=== PATIENT | female | born 1965 | race Caucasian/White ===

== ENCOUNTER → 2017-03-03 | Outpatient (REF) | payer BC ==
[~2017-03-03] MED LIST: FLON1SPR; OMEP40CA2 PO; PREM0.45 PO; TOPI50TA9 PO; VALT1TAB PO
== END ==
LOC: M LAB REF 13:10
PROVIDERS: ATTEND Physician Assistant
DX: J02.9 Acute pharyngitis, unspecified (principal)

== ENCOUNTER 2018-06-22 09:35 | Day surgery (SDC) | payer BC ==
[2018-06-22] MEDS: NS 1,000 ML IV (06:00)
[~2018-06-22 09:35] MED LIST changes: -FLON1SPR; +LIDOCAINE 2% INJ 100 MG/5 ML SDV (FOR ANES.) As Ordered; -OMEP40CA2 PO; -PREM0.45 PO; +PROPOFOL 200 MG/20 ML VIAL As Ordered; -TOPI50TA9 PO; -VALT1TAB PO
[2018-06-22] MEDS ORDERED: PROPOFOL 200 MG/20 ML VIAL As Ordered (11:43)
== END 2018-06-22 11:23 | disposition home or self-care (01) ==
LOC: M OPP 09:35
DX: Z12.11 Encounter for screening for malignant neoplasm of colon (principal); R19.4 Change in bowel habit; K64.8 Other hemorrhoids; K62.5 Hemorrhage of anus and rectum; Z87.19 Personal history of other diseases of the digestive system; K21.9 Gastro-esophageal reflux disease without esophagitis; R12 Heartburn; M54.89 Other dorsalgia; R51 Headache; R06.83 Snoring; Z87.442 Personal history of urinary calculi; Z85.43 Personal history of malignant neoplasm of ovary; Z85.41 Personal history of malignant neoplasm of cervix uteri; Z87.891 Personal history of nicotine dependence; Z79.899 Other long term (current) drug therapy
CPT/HCPCS: G0121

== ENCOUNTER → 2019-05-30 | Outpatient (CLI) | payer BC ==
[~2019-05-30] MED LIST changes: +FLON1SPR; -LIDOCAINE 2% INJ 100 MG/5 ML SDV (FOR ANES.) As Ordered; +OMEP40CA2 PO; +PREM0.45 PO; -PROPOFOL 200 MG/20 ML VIAL As Ordered; +TOPI50TA9 PO; +VALT1TAB PO
--- NOTE | 2019-05-30 14:36 | REP ---
Left foot: Four views. History: Left foot pain after fall. Findings: A toe ring is seen overlying the second PIP joint. There is mild plantar and Achilles calcaneal spurring. Overall mineralization pattern is normal. There are small os naviculare ossicles visible. No fracture is seen. Impression: No fracture noted. Electronically Signed by John Balbuena MD 05/30/2019 02:28 P
== END ==
LOC: M LRY 13:57
PROVIDERS: ATTEND Physician Assistant
DX: S99.922A Unspecified injury of left foot, initial encounter (principal); W19.XXXA Unspecified fall, initial encounter; Y92.89 Other specified places as the place of occurrence of the external cause

== ENCOUNTER → 2021-04-28 | Outpatient (CLI) | payer BC ==
[~2021-04-28] MED LIST changes: -OMEP40CA2 PO; +OMEP40CA4 PO
--- NOTE | 2021-04-28 11:17 | REP ---
INDICATION: LUNG SCREENING. COMPARISON: None. TECHNIQUE: Axial noncontrast images from the thoracic inlet to the upper abdomen using low-dose lung screening technique (LDCT). As per the protocol only lung window images were sent to the read station for interpretation. FINDINGS: There is biapical pleuroparenchymal scarring. No abnormal nodules, masses, or opacities are present. There is no pleural effusion. There is no gross pericardial effusion. Grossly, the mediastinum and pulmonary duncan are within normal limits. Grossly, the imaged upper abdomen and imaged osseous structures are within normal limits. IMPRESSION: Although there are no prior CT examinations of the chest for comparison the degree of biapical pleuroparenchymal scarring seen on today's examination was evident on lung window imaging performed on prior neck CT of 10/01/2015. Overall, lung rads category 1 no abnormal nodule. Follow-up as per the revised Fleischner society criteria. <Electronically signed by Kristopher Aburto > 04/28/21 [id number]
== END ==
LOC: M RAD 09:37
PROVIDERS: ATTEND Family Medicine
DX: Z87.891 Personal history of nicotine dependence (principal)

== ENCOUNTER → 2021-07-06 | Outpatient (CLI) | payer BC ==
--- NOTE | 2021-07-08 19:14 | SLEEPHOME ---
DATE: 07/06/2021 ORDERED BY: Elaine Mcclure Diagnostic home sleep testing was performed due to concern for the obstructive sleep apnea syndrome in this patient with a history of excessive somnolence, nonrestorative sleep, and morning headaches. For testing, a NOX T3 respiratory monitoring device was used. Continuous record was made of pulse, oxygen saturation, chest and abdominal strain, and body position. There was 9 hours and 42 minutes of data reviewed, and during this interval there were 247 respiratory events identified of 10 seconds in duration or greater. The events were primarily obstructive. Some mixed and central apneas were also seen. The patient's baseline pulse rate was 76. Pulse rate ranged between 60-113. Baseline saturation was 93%. Saturations fell to 82%, and testing was performed in both the supine and nonsupine positions. IMPRESSION: Abnormal home sleep testing with repetitive respiratory events and oxygen desaturations to 82% with a respiratory event index of 25.5 is consistent with the obstructive sleep apnea syndrome. RECOMMENDATION: The patient should be encouraged to undergo formal sleep evaluation.
== END ==
LOC: M SLEEP 11:06
PROVIDERS: ATTEND Nurse Practitioner Adult Health
DX: G47.30 Sleep apnea, unspecified (principal)

== ENCOUNTER → 2021-08-20 | Outpatient (CLI) | payer BC | LOC: M SLEEP 20:00 | PROVIDERS: ATTEND Nurse Practitioner Adult Health | DX: G47.33 Obstructive sleep apnea (adult) (pediatric) (principal) ==

== ENCOUNTER → 2022-09-14 | Outpatient (CLI) | payer BC | LOC: M LABSMTC 10:09 | PROVIDERS: ATTEND Anesthesiology | DX: Z01.812 Encounter for preprocedural laboratory examination (principal); Z20.822 Contact with and (suspected) exposure to COVID-19 ==

== ENCOUNTER 2022-09-16 11:15 | Day surgery (SDC) | payer BC ==
[~2022-09-16] VITALS: Ht 160 cm; Wt 85.6 kg
[~2022-09-16 11:15] MED LIST changes: +NS 1,000 ML IV ONE
[2022-09-16] MEDS ORDERED: LIDOCAINE 2% 100MG/5ML SDV (FOR ANES.) As Ordered ONE (12:11)
[2022-09-16] MEDS ORDERED: propofoL 200 MG/20 ML VIAL As Ordered ONE (12:11)
[2022-09-16 13:55] VITALS: BP 164/98
== END 2022-09-16 14:03 | disposition home or self-care (01) ==
LOC: M OPP 11:15
PROVIDERS: ATTEND Internal Medicine Gastroenterology
DX: D12.2 Benign neoplasm of ascending colon (principal); K57.30 Diverticulosis of large intestine without perforation or abscess without bleeding; K64.8 Other hemorrhoids; K44.9 Diaphragmatic hernia without obstruction or gangrene; K21.9 Gastro-esophageal reflux disease without esophagitis; G47.30 Sleep apnea, unspecified; Z85.43 Personal history of malignant neoplasm of ovary; Z85.44 Personal history of malignant neoplasm of other female genital organs; Z79.899 Other long term (current) drug therapy

== ENCOUNTER → 2023-02-28 | Outpatient (CLI) | payer BC ==
[~2023-02-28] MED LIST changes: -NS 1,000 ML IV ONE; +TOPI-254 PO; -TOPI50TA9 PO
== END ==
LOC: M RAD 14:24
PROVIDERS: ATTEND Family Medicine
DX: F17.211 Nicotine dependence, cigarettes, in remission (principal)

== ENCOUNTER → 2023-07-06 | Outpatient (CLI) | payer BC | LOC: M PLAIMG 06:47 | PROVIDERS: ATTEND Orthopaedic Surgery | DX: M25.512 Pain in left shoulder (principal) ==

== ENCOUNTER → 2024-07-12 | Outpatient (CLI) | payer BC ==
[~2024-07-12] MED LIST changes: +TOPI-21 PO; -TOPI-254 PO
== END ==
LOC: M RAD 14:54
PROVIDERS: ATTEND Family Medicine
DX: F17.211 Nicotine dependence, cigarettes, in remission (principal)